=== PATIENT | female | born 1950 | race African-American/Black ===

== ENCOUNTER 2022-06-04 12:06 | Emergency (ER) | payer OTHER ==
[~2022-06-04] VITALS: Ht 162.6 cm; Wt 82.0 kg
[2022-06-04 12:09] VITALS: BP 142/88
[2022-06-04] MEDS ORDERED: IBUPROFEN 600MG TABLET PO ONE (12:30)
[2022-06-04] MEDS ORDERED: TOPUD MT (15:03)
== END 2022-06-04 15:17 | disposition home or self-care (01) ==
LOC: ER 12:06
DX: R51.9 Headache, unspecified (principal); M25.512 Pain in left shoulder; M25.522 Pain in left elbow; G89.11 Acute pain due to trauma; I10 Essential (primary) hypertension; W01.0XXA Fall on same level from slipping, tripping and stumbling without subsequent striking against object, initial encounter; Y93.89 Activity, other specified; Y92.22 Religious institution as the place of occurrence of the external cause; Z88.8 Allergy status to other drugs, medicaments and biological substances
CPT/HCPCS: 73030; 73070; 99284